=== PATIENT | male | born 1960 | race Caucasian/White ===

== ENCOUNTER 2022-07-09 11:19 | Emergency (ER) | payer MEDICAID ==
--- NOTE | 2022-07-09 13:35 | XRay Report ---
CHEST 2 VIEWS INDICATION / CLINICAL INFORMATION: Chest Pain. COMPARISON: None available. FINDINGS: SUPPORT DEVICES: None. HEART / MEDIASTINUM: No significant abnormality. LUNGS / PLEURA: Lungs are slightly hyperinflated. No focal consolidation or pleural effusion No pneum othorax. ADDITIONAL FINDINGS: No significant additional findings. IMPRESSION: 1. No acute findings. Signer Name: Ajith Hurd MD Signed: 07/09/2022 1:31 PM Workstation Name: [id number]
[2022-07-09 15:32] LABS: Hematocrit 44.2 % (35.5-45.6); Hemoglobin 14.3 gm/dl (11.8-15.2); Mean Corpuscular HGB Conc 32 % (32-34); Mean Corpuscular Volume 90 fl (84-94); Platelet Count 178 K/mm3 (140-440); Red Cell Distribution Width 14.8 % (13.2-15.2)
[2022-07-09 17:35] LABS: Basophils % (Manual) 0 % (0.0-1.8); Eosinophils % (Manual) 0 % (0.0-4.3); Total Cells Counted 100
[2022-07-09 17:36] LABS: Macrocytosis 2+; Platelet Estimate Consistent w Auto
[2022-07-09 17:56] LABS: Alanine Aminotransferase 6 units/L (7-56); Albumin 4.6 g/dL (3.9-5); BUN/Creatinine Ratio 14; Blood Urea Nitrogen 15 mg/dL (9-20); Calcium 9.2 mg/dL (8.4-10.2); Hemolysis Index 26
[2022-07-10] MEDS ORDERED: NITROGLYCERIN DRIP 50 MG/250 ML BOTTLE IV SCH (10:00)
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
[2022-07-10 11:05] LABS: Amphetamine Screen,Urine Negative; Benzodiazepines Screen,Urine Negative; Cannabinoid Screen,Urine Negative; Methadone Screen,Urine Negative; Opiate Screen,Urine Negative
[2022-07-10 11:17] LABS: Color,Urine Yellow (Yellow)
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
[2022-07-10 11:24] LABS: Bacteria,Urine 1+ /HPF (Negative); Hyaline Casts,Urine 1 /LPF; Mucus,Urine 3+ /HPF; Renal Epithelial Cells,Urine 7 /LPF
[2022-07-10 11:35] LABS: Cocaine Screen,Urine Positive
[2022-07-10 12:54] VITALS: BP 131/67
--- NOTE | 2022-07-10 13:16 | Electrocardiograph Report ---
[facility] Test Date: 2022-07-09 Test Time: 12:52:52 Pat Name: ELY HANEY Department: Room: Gender: M Internal Medicine Nurse Practitioner: GP : 1960 Requested By: ED DOC Order Number: [id number] Reading MD: Antonia To Measurements Intervals [place] Rate: 78 P: 72 MA: 139 QRS: 54 QRSD: 67 T: 64 QT: 368 QTc: 420 Interpretive Statements Sinus rhythm LAE, consider biatrial enlargement Probable left ventricular hypertrophy No previous ECG available for comparison Electronically Signed On 07-10-2022 13:15:41 EDT by Antonia oT
--- NOTE | 2022-07-11 18:05 | Electrocardiograph Report ---
[facility] Test Date: 2022-07-10 Test Time: 09:25:27 Pat Name: ELY HANEY Department: Room: Gender: M Complaint Coordinator: LUCA : 1960 Requested By: GEN HERRMANN Order Number: [id number] Reading MD: Antonia To Measurements Intervals [place] Rate: 63 P: 77 ID: [id number] QRS: 74 QRSD: 70 T: 78 QT: 392 QTc: 403 Interpretive Statements Sinus rhythm Biatrial enlargement Probable left ventricular hypertrophy Compared to ECG 07/09/2022 12:52:52 No significant change Electronically Signed On 07-11-2022 18:05:17 EDT by Antonia To
== END 2022-07-10 12:54 | disposition home or self-care (01) ==
LOC: ED 11:19
DX: E78.5 Hyperlipidemia, unspecified (principal); I25.10 Atherosclerotic heart disease of native coronary artery without angina pectoris; F14.10 Cocaine abuse, uncomplicated; I11.0 Hypertensive heart disease with heart failure; I50.9 Heart failure, unspecified; I21.9 Acute myocardial infarction, unspecified; Z91.19 Patient's noncompliance with other medical treatment and regimen; Z98.890 Other specified postprocedural states; F17.200 Nicotine dependence, unspecified, uncomplicated
CPT/HCPCS: 36415; 71046; 80053; 80307; 81001; 84484; 85007; 85025; 93005; 99284